=== PATIENT | female | born 2000 | race Caucasian/White ===

== ENCOUNTER 2020-06-10 06:57 | Emergency (ER) | payer BC ==
[~2020-06-10] VITALS: Ht 165 cm; Wt 68.0 kg
[2020-06-10] MEDS ORDERED: NS IV 1000 ML 1,000 ML IV STA (07:21)
[2020-06-10] MEDS ORDERED: KETOROLAC 30 MG/ML VIAL IVP STA (07:21)
[2020-06-10] MEDS ORDERED: ONDANSETRON 4 MG/2 ML (SDV) Z0FRAN IVP STA (07:25)
--- NOTE | 2020-06-10 07:25 | ED GU-Female ---
General Chief Complaint: Abdominal/GI Problems Stated Complaint: RT GROIN/ABD/FLANK PAIN Source: patient History of Present Illness Date Seen by Provider: Jun 10, 2020 Time Seen by Provider: 07:10 Initial Comments 20 yo female presenting with complaints of right sided flank pain radiating to her groin and vaginal area since about 430 this am. She has had similar pain in the past with kidney stones. She has not seen a Urologist about the stones. She took a Tramadol but it did not help. She is out of the medicine prescribed for bladder spasms that usually gets used for prostate issues. She denies having a local primary care provider but follows with a provider out of [place], Dr. Shwetha Truong. She has had an episode of vomiting this am. She denies vaginal discharge or bleeding. She has had no abdominal surgeries. She initially thought that maybe she was constipated and was straining on the toilet but that just made her back hurt and now she has pain going into her right thigh as well as the groin. She feels flushed and hot but does not have a fever. Timing/Duration: this morning (0430), intermittent Severity/Quality: severe, sharp, stabbing Location: right flank Radiation: groin, vaginal, urethral Activities at Onset: sleep Prior Genitourinary Problems: similar symptoms (with kidney stones) Sexual [place] History: less than 2 months ago, single partner Modifying Factors: Worsens With Defecating, Worsens With Movement, Worsens With Palpation, Worsens With Urinating Associated Symptoms: abdominal pain (pain wraps around right flank into her gr oin); No diaphoresis; dysuria; No fever/chills, No loss of bladder control; lower back pain; No lumps, No mass; nausea/vomiting; No nocturia, No polyuria, No swelling, No syncope; urinary frequency Allergies and Home Medications Allergies Coded Allergies: amoxicillin (Verified Allergy, Intermediate, Vomiting, 06/10/20) clavulanic acid (Verified Allergy, Intermediate, Vomiting, 06/10/20) aripiprazole (Verified Allergy, Unknown, 06/10/20) quetiapine (Verified Allergy, Unknown, 06/10/20) Home Medications Norethindrone AC-Eth Estradiol 1 Each Tablet, 1 TAB PO DAILY, (Reported) 1 tab by mouth daily for 21 days, then off for 7 days. Last Action: New Order Ondansetron 4 Mg Tab.rapdis, 4 MG PO Q6H PRN for NAUSEA/VOMITING Prescribed by: YORDAN HIGGINSRT on 06/10/20755 Tamsulosin HCl 0.4 Mg Cap, 0.4 MG PO DAILY Prescribed by: YORDAN COBBYART on 06/10/20755 Tramadol HCl 50 Mg Tablet, 50 MG PO Q6H PRN for PAIN-SEVERE (8-10) Prescribed by: YORDAN TORO on 06/10/20755 Patient Home Medication List Home Medication List Reviewed: Yes Review of Systems Review of Systems Constitutional: No chills; fever (subjectively feels hot and flushed) EENTM: no symptoms reported Respiratory: no symptoms reported Cardiovascular: no symptoms reported Gastrointestinal: see HPI Genitourinary: see HPI : No LMP: May 27, 2020 Musculoskeletal: back pain (low back pain) Skin: no symptoms reported Psychiatric/Neurological: Anxiety Endocrine: No Symptoms Reported Past Tzqrhwh-Ejyzyh-Hmgqxo Hx Past Med/Social Hx: Reviewed Nursing Past Med/Soc Hx Past Medical History Surgeries: Yes Ear Surgery (tympanostomy tubes as child) Respiratory: No Cardiac: No Neurological: No : No Reproductive Disorders: No Genitourinary: Yes Kidney Stones Gastrointestinal: No Musculoskeletal: No Endocrine: No HEENT: No Cancer: No Integumentary: No Physical Exam Vital Signs Vital Signs - First Documented 06/10/20 07:10 Temp 36.6 Pulse 85 Resp 18 B/P (MAP) 130/95 (107) Pulse Ox 99 O2 Delivery Room Air Capillary Refill : Height, Weight, BMI Height: '" Weight: lbs. oz. kg; BMI Method: General Appearance: moderate distress (intermittently crying out with pain to right flank) HEENT: PERRL/EOMI Neck: non-tender, full range of motion, supple, normal inspection Cardiovascular: normal peripheral pulses, regular rate, rhythm Respiratory: chest non-tender, lungs clear, normal breath sounds, no respiratory distress, no accessory muscle use Gastrointestinal: normal bowel sounds, soft, no pulsatile mass, tenderness (right flank wrapping around to her RLQ and groin/suprapubic area) Rectal: deferred Extremities: normal range of motion, normal capillary refill Neurologic/Psychiatric: apartment leasing manager II-XII nml as tested, alert, oriented x 3 Skin: normal color, warm/dry Progress/Results/Core Measures Suspected Sepsis SIRS Temperature: Pulse: Respiratory Rate: Laboratory Tests 06/10/20 07:18: White Blood Count 9.1 Blood Pressure / Mean: Laboratory Tests 06/10/20 07:18: Creatinine 0.85, Platelet Count 290, Total Bilirubin 0.9 Results/Orders Lab Results Laboratory Tests Test 06/10/20 07:10 06/10/20 07:18 Range/Units Urine Color YELLOW Urine Clarity SLT CLOUDY Urine pH 7.0 5-9 Urine Specific [place]edar 1.020 1.016-1.022 Urine Protein NEGATIVE NEGATIVE Urine Glucose (UA) NEGATIVE NEGATIVE Urine Ketones NEGATIVE NEGATIVE Urine Nitrite NEGATIVE NEGATIVE Urine Bilirubin NEGATIVE NEGATIVE Urine Urobilinogen 0.2 < = 1.0 MG/DL Urine Leukocyte Esterase TRACE H NEGATIVE Urine RBC (Auto) 1+ H NEGATIVE Urine RBC 0-2 /HPF Urine WBC 2-5 /HPF Urine Squamous Epithelial Cells 10-25 H /HPF Urine Crystals NONE /LPF Urine Bacteria TRACE /HPF Urine Casts NONE /LPF Urine Mucus NEGATIVE /LPF Urine Culture Indicated NO White Blood Count 9.1 4.3-11.0 10^3/uL Red Blood Count 5.18 4.35-5.85 10^6/uL Hemoglobin 14.2 11.5-16.0 G/DL Hematocrit 42 35-52 % Mean Corpuscular Volume 82 80-99 FL Mean Corpuscular Hemoglobin 27 25-34 PG Mean Corpuscular Hemoglobin Concent 34 32-36 G/DL Red Cell Distribution Width 12.4 10.0-14.5 % Platelet Count 290 130-400 10^3/uL Mean Platelet Volume 9.7 7.4-10.4 FL Immature Granulocyte % (Auto) 0 % Neutrophils (%) (Auto) 60 42-75 % Lymphocytes (%) (Auto) 27 12-44 % Monocytes (%) (Auto) 10 0-12 % Eosinophils (%) (Auto) 2 0-10 % Basophils (%) (Auto) 0 0-10 % Neutrophils # (Auto) 5.5 1.8-7.8 X 10^3 Lymphocytes # (Auto) 2.5 1.0-4.0 X 10^3 Monocytes # (Auto) 1.0 0.0-1.0 X 10^3 Eosinophils # (Auto) 0.2 0.0-0.3 10^3/uL Basophils # (Auto) 0.0 0.0-0.1 10^3/uL Immature Granulocyte # (Auto) 0.0 0.0-0.1 10^3/uL Sodium Level 143 135-145 MMOL/L Potassium Level 3.6 3.6-5.0 MMOL/L Chloride Level 108 H 98-107 MMOL/L Carbon Dioxide Level 24 21-32 MMOL/L Anion Gap 11 5-14 MMOL/L Blood Urea Nitrogen 13 7-18 MG/DL Creatinine 0.85 0.60-1.30 MG/DL Estimat Glomerular Filtration Rate > 60 BUN/Creatinine Ratio 15 Glucose Level 117 H 70-105 MG/DL Calcium Level 9.5 8.5-10.1 MG/DL Corrected Calcium 8.5-10.1 MG/DL Total Bilirubin 0.9 0.1-1.0 MG/DL Aspartate Amino Transf (AST/SGOT) 18 5-34 U/L Alanine Aminotransferase (ALT/SGPT) 17 0-55 U/L Alkaline Phosphatase 74 40-136 U/L Total Protein 7.1 6.4-8.2 GM/DL Albumin 4.6 H 3.2-4.5 GM/DL Lipase 18 8-78 U/L My Orders Orders - YORDAN TORO MD Ua Culture If Indicated (06/10/20 07:11) Urine Bedside (06/10/20 07:11) Comprehensive Metabolic Panel (06/10/20 07:11) Lipase (06/10/20 07:11) Ed Iv/Invasive Line Start (06/10/20 07:11) Cbc With Automated Diff (06/10/20 07:11) Ct Abdomen/Pelvis Wo (06/10/20 07:11) Ketorolac Injection (Toradol Injection) (06/10/20 07:21) Ns Iv 1000 Ml (Sodium Chloride 0.9%) (06/10/20 07:21) Ondansetron Injection (Zofran Injectio (06/10/20 07:25) Fentanyl Inj (Sublimaze Injection) (06/10/20 07:26) Strain Urine (06/10/20 07:57) Vital Signs/I&O 4/15/21 4/15/21 4/15/21 07:10 07:30 08:18 Temp 36.6 36.6 36.6 Pulse 85 68 Resp 18 18 B/P (MAP) 130/95 (107) 130/95 Pulse Ox 99 99 O2 Delivery Room Air Room Air Capillary Refill : Progress Note #1: Progress Note Obtain UA and Urine test on arrival. Order labs to check blood count and chemistry profile including lipase. Order CT scan of the abdomen and pelvis without contrast to evaluate for possible kidney stone or other pathology to cause right flank pain. Ordered Toradol 30 mg IV for pain, fentanyl 50 mcg for pain, Zofran 4 mg IV for nausea, 1 L of normal saline IV for hydration. Differential diagnosis would include kidney stones, pyelonephritis, UTI, PID, appendicitis, colitis, diverticulitis, pancreatitis, ovarian cyst. Progress Note #2: Time: 07:39 Progress Note CBC shows no acute significant abnormality. Her urinalysis has a specific gravity of 1.020 and had trace leukocyte esterase with 1+ blood but only 2-5 red blood cells. There were 10-25 epithelial cells. No nitrites, bacteria or white blood cells to indicate an infection. Progress Note #3: Time: 07:57 Progress Note Chemistry panel without acute significant abnormality. She had normal renal function. Her CT scan shows a 2 mm distal right ureter kidney stone with mild hydroureter hydronephrosis. There is no other significant abnormality on the CT scan. On recheck of the patient she states that her pain is down to a 2 out of 10. She initially was a 9 out of 10. She states that it has been since her last kidney stone. 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 Discussed results of testing and reviewed follow-up and return precautions. Answered all questions prior to discharge. Given handouts about kidney stones, renal colic, diet and prevention for kidney stones. Stressed importance of drinking more water and less carbonated and caffeine drinks. Diagnostic Imaging Diagonstic Imaging: CT Plain Films/CT/US/NM/MRI: abdomen, pelvis Comments NAME: [facility] REC#: [id number] PT STATUS: REG ER : 2000 PHYSICIAN: YORDAN TORO MD ADMIT DATE: 06/10/20/ER FS Draft Date of Exam:06/10/20 CT ABDOMEN/PELVIS WO EXAMINATION: CT Abdomen Pelvis without contrast. TECHNIQUE: Multiple contiguous axial images were obtained through the abdomen and pelvis without the use of intravenous contrast. All CT scans use one or more of the following dose optimizing techniques: automated exposure control, MA and/or KvP adjustment based on a patient size and exam type, or iterative reconstruction. HISTORY: Right flank pain, history of kidney stones COMPARISON: None available. FINDINGS: Lung bases: The lung bases are clear. Solid organs: The liver is normal. The gallbladder is normal. There is no biliary ductal dilation. Pancreas is normal. Spleen is normal. Adrenal glands are normal. There is a 0.2 cm calculus within the distal right ureter which results in mild right hydronephrosis and hydroureter. The left kidney is unremarkable. Bowel: The stomach and small bowel are normal without obstruction. Colon is unremarkable. No findings of acute appendicitis. Peritoneum: There is no intraperitoneal free fluid or free air. No suspicious lymphadenopathy. Vasculature: Normal without aneurysm. Musculoskeletal: No suspicious osseous lesion or compression fracture. Pelvis: The uterus and adnexa are normal. The urinary bladder is normal. IMPRESSION: 1. A 0.2 cm calculus within the distal right ureter resulting in mild right hydronephrosis and hydroureter. Dictated on workstation # [id number] Dict: 06/10/20 0739 Trans: 06/10/20 0743 BANNER [id number] Interpreted by: JOHNNY CHAVEZ DO Electronically signed by: Departure Impression Primary Impression: Right distal ureteral calculus Additional Impressions: Acute right flank pain Renal colic on right side Disposition: 01 HOME, SELF-CARE Condition: Improved Departure-Patient Inst. Decision time for Depature: 08:15 Referrals: SHWETHA TRUONG MD (PCP) Primary Care Physician KARRIE ESCOBAR MD Patient Instructions: Kidney Stone, Adult ED, How to Strain Your Urine, Kidney Stone Diet Add. Discharge Instructions: Follow up with Urology for continued concerns about kidney stones. Continue to work with your primary provider about your symptoms. Strain all your urine until you see the stone pass so you could collect the stone and see if your doctor or Urology would want to order an analysis of the stone to see what it was made from so they could direct your diet if needed to help prevent further stones. Seek medical care if you have pain not controlled with the medicine, fever over 101 F, or uncontrolled vomiting as you may need additional IV medicine or further care and treatment. All discharge instructions reviewed with patient and/or family. Voiced understanding. Scripts Ondansetron (Ondansetron Odt) 4 Mg Tab.rapdis 4 MG PO Q6H PRN for NAUSEA/VOMITING for 3 Days, #12 TAB 0 Refills Prov: YORDAN TORO MD 06/10/20 Tramadol HCl (Tramadol HCl) 50 Mg Tablet 50 MG PO Q6H PRN for PAIN-SEVERE (8-10) for 3 Days, #12 TAB 0 Refills Prov: YORDAN TORO MD 06/10/20 Tamsulosin HCl (Flomax) 0.4 Mg Cap 0.4 MG PO DAILY for renal colic for 10 Days, #10 CAP 0 Refills Prov: YORDAN TORO MD 06/10/20 YORDAN TORO MD Jun 10, 2020 07:25
[2020-06-10] MEDS ORDERED: fentaNYL INJ 100 MCG/2 ML AMP IVP STA (07:26)
[2020-06-10 07:32] LABS: HEMOGLOBIN 14.2 G/DL (11.5-16.0); MEAN CORPUSCULAR HEMOGLOBIN 27 PG (25-34); WHITE BLOOD COUNT 9.1 10^3/uL (4.3-11.0)
[2020-06-10 07:33] LABS: BASOPHILS % (AUTO) 0 % (0-10); EOSINOPHILS % (AUTO) 2 % (0-10); HEMATOCRIT 42 % (35-52); LYMPHOCYTES # (AUTO) 2.5 X 10^3 (1.0-4.0); LYMPHOCYTES % (AUTO) 27 % (12-44); MEAN CORPUSCULAR HGB CONC 34 G/DL (32-36); MEAN CORPUSCULAR VOLUME 82 FL (80-99); MEAN PLATELET VOLUME 9.7 FL (7.4-10.4); MONOCYTES % (AUTO) 10 % (0-12); NEUTROPHILS # (AUTO) 5.5 X 10^3 (1.8-7.8); NEUTROPHILS % (AUTO) 60 % (42-75); PLATELET COUNT 290 10^3/uL (130-400)
[2020-06-10 07:34] LABS: CLARITY,URINE SLT CLOUDY; COLOR,URINE YELLOW; GLUCOSE, URINE (UA) NEGATIVE (NEGATIVE); PROTEIN,URINE NEGATIVE (NEGATIVE)
[2020-06-10 07:34] LABS: EOSINOPHILS # (AUTO) 0.2 10^3/uL (0.0-0.3)
[2020-06-10 07:35] LABS: BACTERIA,URINE TRACE /HPF; BILIRUBIN,URINE NEGATIVE (NEGATIVE); KETONES,URINE NEGATIVE (NEGATIVE); LEUKOCYTE ESTERASE ,URINE TRACE (NEGATIVE); NITRITE,URINE NEGATIVE (NEGATIVE); RBC,URINE 0-2 /HPF
[2020-06-10] MEDS ORDERED: NORE1TAB23 PO (07:38)
--- NOTE | 2020-06-10 07:44 | Diagnostic Imaging Report ---
EXAMINATION: CT Abdomen Pelvis without contrast. TECHNIQUE: Multiple contiguous axial images were obtained through the abdomen and pelvis without the use of intravenous contrast. All CT scans use one or more of the following dose optimizing techniques: automated exposure control, MA and/or KvP adjustment based on a patient size and exam type, or iterative reconstruction. HISTORY: Right flank pain, history of kidney stones COMPARISON: None available. FINDINGS: Lung bases: The lung bases are clear. Solid organs: The liver is normal. The gallbladder is normal. There is no biliary ductal dilation. Pancreas is normal. Spleen is normal. Adrenal glands are normal. There is a 0.2 cm calculus within the distal right ureter which results in mild right hydronephrosis and hydroureter. The left kidney is unremarkable. Bowel: The stomach and small bowel are normal without obstruction. Colon is unremarkable. No findings of acute appendicitis. Peritoneum: There is no intraperitoneal free fluid or free air. No suspicious lymphadenopathy. Vasculature: Normal without aneurysm. Musculoskeletal: No suspicious osseous lesion or compression fracture. Pelvis: The uterus and adnexa are normal. The urinary bladder is normal. IMPRESSION: 1. A 0.2 cm calculus within the distal right ureter resulting in mild right hydronephrosis and hydroureter. Dictated by: Dictated on workstation # [id number]
[2020-06-10 07:51] LABS: ALANINE AMINOTRANSFERASE 17 U/L (0-55); ALBUMIN 4.6 GM/DL (3.2-4.5); ALKALINE PHOSPHATASE 74 U/L (40-136); BILIRUBIN,TOTAL 0.9 MG/DL (0.1-1.0); BUN/CREATININE RATIO 15; CALCIUM 9.5 MG/DL (8.5-10.1); CARBON DIOXIDE 24 MMOL/L (21-32); CHLORIDE 108 MMOL/L (98-107); CREATININE SERUM 0.85 MG/DL (0.60-1.30); GFR ESTIMATED > 60; GLUCOSE 117 MG/DL (70-105); POTASSIUM 3.6 MMOL/L (3.6-5.0); SODIUM 143 MMOL/L (135-145); TOTAL PROTEIN 7.1 GM/DL (6.4-8.2)
[2020-06-10 07:52] LABS: LIPASE 18 U/L (8-78)
[2020-06-10] MEDS ORDERED: TRM50T PO (07:56)
[2020-06-10] MEDS ORDERED: ONDA4TAB11 PO (07:56)
[2020-06-10] MEDS ORDERED: TMSL.4C PO (07:56)
[2020-06-10 08:18] VITALS: BP 130/95
== END 2020-06-10 08:18 | disposition home or self-care (01) ==
LOC: EDUNIT# 07:06 → ER FS 07:08
DX: N13.2 Hydronephrosis with renal and ureteral calculous obstruction (principal); I10 Essential (primary) hypertension; Z88.1 Allergy status to other antibiotic agents; Z88.8 Allergy status to other drugs, medicaments and biological substances
CPT/HCPCS: 36415; 74176; 80053; 81000; 83690; 84703; 85025

== ENCOUNTER 2020-10-23 09:01 | Emergency (ER) | payer BC ==
[~2020-10-23] VITALS: Ht 165 cm; Wt 79.5 kg
[~2020-10-23 09:01] MED LIST: NORE1TAB23 PO; ONDA4TAB11 PO; TMSL.4C PO; TRM50T PO
--- OUTSIDE RECORDS SUMMARY | 2020-10-23 09:05 | XMS REPORT | Clinical Summary ---
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 Name Role Phone Shwetha Truong MD PP Allergies Comments Active Allergy Reactions Severity Noted Date Ticks Aripiprazole Other (See 03/05/2019 Comments) Vomit Amoxicillin-Pot GI 03/05/2019 Clavulanate Intolerance Ticks Quetiapine Other (See 03/05/2019 Comments) Medications Not on file Active Problems Not on file Immunizations Name Administration Dates Next Due Menactra Single Dose Vial 03/05/2019 Social History Date Tobacco Use Types Packs/Day Years Used Never Assessed Sex Assigned at Date Recorded Not on file Last Filed Vital Signs Reading Time Taken Comments Vital Sign - - Blood Pressure - - Pulse 37.2 C (99 F) 03/05/2019 4:58 PM FRONT DESK MONITOR Temperature - - Respiratory Rate - - Oxygen Saturation - - Inhaled Oxygen Concentration 68 kg (150 lb) 03/05/2019 4:58 PM FRONT DESK MONITOR Weight - - Height - - Body Mass Index Plan of Treatment Health Maintenance Due Date Last Done Comments Cervical Cancer: 05/10/2020 Screening Results Not on filefrom Last 3 Months Insurance Type Payer Benefit Subscriber ID Effective Phone Address Plan / Dates Group BCBS JESSICA BCBS [id number] 2019-P [facility] - NON HMO PLANS [id number] Care Teams Start Date End Date Tank Truck Engine Mechanic Relationship Specialty 03/05/19 Shwetha Truong MD PCP - General Family [address] [place] [address]
--- OUTSIDE RECORDS SUMMARY | 2020-10-23 09:05 | XMS REPORT | Clinical Summary ---
Author Author [facility] Organization [facility] Address Unknown Phone Unavailable Care Team Providers Care Shank Sorter Name Role Phone Ani Hurley MD PCP Source Comments Some departments are not documenting in the electronic medical record. If you d o not see the information that you expected, contact Release of Information in [facility] [employer] Information Management department at [phone] for further assistan ce in locating additional records.[facility] Allergies Comments Active Allergy Reactions Severity Noted Date Aripiprazole DYSTONIA High 01/23/2016 Amoxicillin-Pot VOMITING Low 01/23/2016 Clavulanate Quetiapine DYSTONIA High 01/23/2016 Medications End Date Status Medication Sig Dispensed Refills Start Date Active lisdexamfetamine(+) Take 20 mg by 0 (VYVANSE) 20 mg capsule mouth every morning Active traZODone (DESYREL) 100 Take 100 mg 0 mg tablet by mouth at bedtime daily. Active meloxicam (MOBIC) 15 mg Take 15 mg by 0 tablet mouth daily. Active lamoTRIgine (LAMICTAL) Take 150 mg 0 150 mg tablet by mouth daily. Active montelukast (SINGULAIR) Take 10 mg by 0 10 mg tablet mouth at bedtime daily. Active escitalopram oxalate Take 20 mg by 0 (LEXAPRO) 20 mg tablet mouth daily. Active Problems Not on file Social History Date Tobacco Use Types Packs/Day Years Used Never Assessed Sex Assigned at Date Recorded Not on file Last Filed Vital Signs Reading Time Taken Comments Vital Sign 108/79 01/24/2016 3:24 PM SURFBOARD MAKER Blood Pressure 78 01/24/2016 2:15 PM SURFBOARD MAKER Pulse 36.7 C (98.1 F) 01/24/2016 2:15 PM SURFBOARD MAKER Temperature - - Respiratory Rate 100% 01/24/2016 3:24 PM SURFBOARD MAKER Oxygen Saturation - - Inhaled Oxygen Concentration 52.2 kg (115 lb) 01/23/2016 8:53 AM SURFBOARD MAKER Weight 165.1 cm (5' 5") 01/23/2016 8:53 AM SURFBOARD MAKER Height 19.14 01/23/2016 8:53 AM SURFBOARD MAKER Body Mass Index Plan of Treatment Health Maintenance Due Date Last Done Comments CHLAMYDIA SCREENING 18-24 2000 YEARS HPV VACCINES (1 - 2-dose 05/10/2010 series) HIV SCREENING 05/10/2014 DTAP/TDAP VACCINES ( - 05/10/2017 Tdap) HEPATITIS C SCREENING 05/10/2017 PHYSICAL (COMPREHENSIVE) 05/10/2017 EXAM CERVICAL CANCER SCREENING 05/10/2020 INFLUENZA VACCINE 11/26/2020 MENINGOCOCCAL VACCINE Aged Out No longer eligib le based on patient's age to (Wanda ZAVALA) complete this topic Results Not on filefrom Last 3 Months Insurance Type Payer Benefit Subscriber ID Effective Phone Address Plan / Dates Group AETNA AETNA [id number] 2014[place] [id number] Advance Directives Patient Airline Hostess Explanation Type Date Recorded no Advance 01/22/2016 9:03 PM Directive/DPOA
--- OUTSIDE RECORDS SUMMARY | 2020-10-23 09:06 | XMS REPORT | Clinical Summary ---
Author Author Admin, Aleksandra MELGOZA Organization [facility] Address Unknown Phone Unavailable Allergies, Adverse Reactions, Alerts Allergy Name Reaction Description Start Date Severity Status Pr ovider ABILIFY side effect of seizures Mild Active M jesus Lauren SEROQUEL side effect of seizures Mild Active M jesus Lauren AUGMENTIN vomiting Moderate Active Fela Lauren Conditions or Problems Problem Name Problem Code Onset Date Status Entry Date Provider Comment Standard Description Annotate Absent heart tones, unspecified trimester 659.73 07/20 Resolved Sofi Carbajal MD Abnormality in heart rate or rhythm, antepartum condition or complication BMI 29-29.9 Inactive Sofi Carbajal MD Body Mass Index 29.0-29.9, adult Overweight (BMI 25-29.9) Inactive Sofi hu MD Overweight Supervision of normal first V22.0 Active Sofi Carbajal MD Supervision of normal first Abnormal thyroid stimulating hormone 790.6 Inactive Sofi Carbajal MD Other abnormal blood chemistry Hyperthyroidism in , first trimester 648.13 Active Sofi Carbajal MD Thyroid dysfunction complicating , childbirth, or the puerperium, antepartum condition or complication Rh factor, negative 656.10 Active Sofi Carbajal MD Rhesus isoimmunization affecting management of mother, unspecified as to episode of care or not applicable Absent heart tones, unspecified trimester ICD-659.73 Inactive Sofi Carbajal MD BMI 29-29.9 Inactive Sofi Carbajal MD 2020 Overweight (BMI 25-29.9) Inactive Ricardo Carbajal MD Medication List Medication Instructions Start Date Stop Date Generic Name NDC Status Provider Patient Instruction ZOFRAN 4 MG ORAL TABLET 1 tablet every 6 hours as needed for lamine sea ONDANSETRON HCL 78095148451 Active Sofi Carbajal MD Ac tive EQL FORMULA 28-0.8 MG ORAL TABLET 1 tablet daily 2 VIT-FE FUMARATE-FA 84450438303 Active Fela Aguilar Active Immunizations Vaccine Administration Date Value Standard Cornell cription hepatitis B vaccine series yes hepat itis B vaccine, unspecified formulation Vital Signs Date Name Value Unit Range Description blood pressure, diastolic 85 mm[Hg] BP henry blood pressure, systolic 128 mm[Hg] BP sys pulse rate 82 /min Heart rate temperature E&M 98.0 [degF] Body temp erature weight E&M 168 [lb_av] Weight Measure d blood pressure, diastolic, repeated by physician 87 BP henry blood pressure, diastolic 87 mm[Hg] BP henry blood pressure, systolic, repeated by physician 126 BP sys blood pressure, systolic 126 mm[Hg] BP sys height E&M 65 [in_us] Bdy height pulse rate 83 /min Heart rate temperature E&M 99.3 [degF] Body temp erature weight E&M 177 [lb_av] Weight Measure d Diagnostic Results Date Name Value Unit Range Description Lab Report: BDAffirm, UADIP W/MICRO, AUT O - Chemistry protein, total urine random Negative mg/dL Negative RBC, urine, dipstick Negative Negative Lab Report: BDAffirm, UADIP W/MICRO, AUT O - Urinalysis urobilinogen, urine, semiquantitative (dipstick) 0.2 E .U./dL Normal leukocyte esterase, urine, by dipstick 2+ Negative nitrite, urine, semiquantitative Negative Neg ative glucose, urine, semiquantitative Negative Neg ative ketones, urine, by test strip Negative Negati ve bilirubin, urine Negative Negative urine color Yellow Colorless;Lightyellow;St raw;Yellow appearance, urine Clear Clear specific gravity, urine 1.015 1.000-1.030 pH, urine, semiquantitative 7.5 5.0-8.5 Lab Report: Free Thyroxine (L) - Coating Inspector ry thyroxine, serum, free 1.18 ng/dL 0.59-1.17 Lab Report: HIV Ag/Ab A/C, Thyroid Stimu lating Hormone (L) - Chemistry TSH 0.05 m[iU]/mL 0.36-3.74 Office Visit: follow up ob - Urinalysis protein, urine, semiquantitative (dipstick) Tr glucose, urine, semiquantitative N nitrite, urine, semiquantitative N Office Visit: Initial OB Visit - Genetic s/fertility test, date 06/19/2020 Office Visit: Initial OB Visit - Microbi ology Herpes Simplex Virus Genital no Office Visit: Initial OB Visit - Urinaly sis protein, urine, semiquantitative (dipstick) UC glucose, urine, semiquantitative UC nitrite, urine, semiquantitative UC Procedures Code Procedure Name Date Entry Date Standard Desc ription CPT-05821 Visit 11:40:46 CDT CPT-94439 Sono OB comp <14 weeks - XRAY USE ONLY 4 11:25:17 CDT CPT-90802 Visit 15:47:04 CDT
--- OUTSIDE RECORDS SUMMARY | 2020-10-23 09:06 | XMS REPORT | Clinical Summary ---
Author Author Admin, Aleksandra MELGOZA Organization [facility] Address Unknown Phone Unavailable Allergies, Adverse Reactions, [...] as needed for lamine sea ONDANSETRON HCL [id number] Active Sofi Carbajal MD Ac tive EQL FORMULA 28-0.8 MG ORAL TABLET 1 tablet daily 2 VIT-FE FUMARATE-FA [id number] Active Fela Lauren Active Immunizations Vaccine Administration Date Value Standard Cornell cription hepatitis B vaccine series yes Diagnostic Results Date Name Value Unit Range [...] 5.0-8.5 Lab Report: Free Thyroxine (L) - Salesperson Stereo Equipment ry thyroxine, serum, free 1.18 ng/dL 0.59-1.17 Lab Report: HIV Ag/Ab A/C, Thyroid Stimu lating Hormone (L) - Chemistry TSH 0.05 m[iU]/mL 0.36-3.74 Lab Report: Thyroid Stimulating Hormone (L), Free Thyroxine (L) - Chemistry TSH 0.03 m[iU]/mL 0.36-3.74 thyroxine, serum, free 1.16 ng/dL 0.59-1.17 Office Visit: follow up ob - Urinalysis [...] Name Date Entry Date Standard Desc ription CPT-56506 Venipuncture Draw Fee 12:38:25 CDT CPT-65501 Visit 11:40:46 CDT CPT-51334 Sono OB comp <14 weeks - XRAY USE ONLY 4 11:25:17 CDT CPT-50210 Visit 15:47:04 CDT
--- OUTSIDE RECORDS SUMMARY | 2020-10-23 09:06 | XMS REPORT | Clinical Summary ---
Author Author Admin, Aleksandra MELGOZA Organization [facility] Address Unknown Phone Unavailable Allergies, Adverse Reactions, [...] as needed for lamine sea ONDANSETRON HCL 94104117599 Active Sofi Carbajal MD Ac tive EQL FORMULA 28-0.8 MG ORAL TABLET 1 tablet daily 2 VIT-FE FUMARATE-FA 34887852394 Active Fela Aguilar Active Immunizations Vaccine Administration [...] 5.0-8.5 Lab Report: Free Thyroxine (L) - Route Vending Machine Servicer ry thyroxine, serum, free 1.18 ng/dL 0.59-1.17 [...] Name Date Entry Date Standard Desc ription CPT-41020 Venipuncture Draw Fee 12:38:25 CDT CPT-43879 Visit 11:40:46 CDT CPT-46720 Sono OB comp <14 weeks - XRAY USE ONLY 4 11:25:17 CDT CPT-33942 Visit 15:47:04 CDT
--- OUTSIDE RECORDS SUMMARY | 2020-10-23 09:06 | XMS REPORT | Clinical Summary ---
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 Inactive Sofi Carbajal MD BMI 29-29.9 Inactive Sofi Carbajal MD 2020 Overweight (BMI 25-29.9) Inactive Ricardo Carbajal MD Medication List Medication Instructions Start Date Stop Date Generic Name NDC Status Provider Patient Instruction ZOFRAN 4 MG ORAL TABLET 1 tablet every 6 hours as needed for lamine sea ONDANSETRON HCL 90328782810 Active Sofi Carbajal MD Ac tive EQL FORMULA 28-0.8 MG ORAL TABLET 1 tablet daily 2 VIT-FE FUMARATE-FA 47725890584 Active Fela Abbasina Active Immunizations Vaccine Administration Date Value Standard [...] 5.0-8.5 Lab Report: Free Thyroxine (L) - Electronic Drafter ry thyroxine, serum, free 1.18 ng/dL 0.59-1.17 Lab Report: HIV Ag/Ab A/C, Thyroid Stimu lating Hormone (L) - Chemistry TSH 0.05 m[iU]/mL 0.36-3.74 Lab Report: Thyroid Stimulating Hormone (L), Free Thyroxine (L) - Chemistry TSH 0.03 m[iU]/mL 0.36-3.74 thyroxine, serum, free 1.16 ng/dL 0.59-1.17 Office Visit: Follow up OB - Urinalysis protein, urine, semiquantitative (dipstick) N glucose, urine, semiquantitative N nitrite, urine, semiquantitative N protein, urine, semiquantitative (dipstick) Tr glucose, urine, [...] Name Date Entry Date Standard Desc ription CPT-39257 Sono OB comp > 14 weeks - XRAY USE ONLY 12:44:12 CDT CPT-02964 Visit 09:51:23 CDT CPT-16171 Venipuncture Draw Fee 12:38:25 CDT CPT-62962 Visit 11:40:46 CDT CPT-11934 Sono OB comp <14 weeks - XRAY USE ONLY 4 11:25:17 CDT CPT-04317 Visit 15:47:04 CDT
--- OUTSIDE RECORDS SUMMARY | 2020-10-23 09:06 | XMS REPORT | Clinical Summary ---
Author Author Admin, Aleksandra MELGOZA Organization [employer] [facility] Address Unknown Phone Unavailable Allergies, Adverse Reactions, [...] as needed for lamine sea ONDANSETRON HCL [id number] Active Sofi Carbajal MD Ac tive EQL FORMULA 28-0.8 MG ORAL TABLET 1 tablet daily 2 VIT-FE FUMARATE-FA 42279247221 Active Fela Aguilar Active Immunizations Vaccine Administration Date Value Standard Corenll cription hepatitis B vaccine series yes Diagnostic [...] 5.0-8.5 Lab Report: Free Thyroxine (L) - Vacuum Form Operator ry thyroxine, serum, free 1.18 ng/dL 0.59-1.17 [...] Name Date Entry Date Standard Desc ription CPT-56467 Venipuncture Draw Fee 12:38:25 CDT CPT-84516 Visit 11:40:46 CDT CPT-52000 Sono OB comp <14 weeks - XRAY USE ONLY 4 11:25:17 CDT CPT-32797 Visit 15:47:04 CDT
--- OUTSIDE RECORDS SUMMARY | 2020-10-23 09:06 | XMS REPORT | Clinical Summary ---
Author Author Admin, Aleksandra MELGOZA Organization [facility] Address Unknown Phone Unavailable Allergies, Adverse [...] as needed for lamine sea ONDANSETRON HCL 17108402311 Active Sofi Carbajal MD Ac tive EQL FORMULA 28-0.8 MG ORAL TABLET 1 tablet daily 2 VIT-FE FUMARATE-FA 11150409906 Active Fela Lauren Active Immunizations Vaccine Administration [...] 5.0-8.5 Lab Report: Free Thyroxine (L) - Dot Etcher Apprentice ry thyroxine, serum, free 1.18 ng/dL 0.59-1.17 [...] Name Date Entry Date Standard Desc ription CPT-82047 Venipuncture Draw Fee 12:38:25 CDT CPT-71977 Visit 11:40:46 CDT CPT-57671 Sono OB comp <14 weeks - XRAY USE ONLY 4 11:25:17 CDT CPT-89495 Visit 15:47:04 CDT
--- OUTSIDE RECORDS SUMMARY | 2020-10-23 09:06 | XMS REPORT | Clinical Summary ---
Author Author Admin, Aleksandra MELGOZA Organization [employer] [facility] Address Unknown Phone Unavailable Allergies, Adverse [...] as needed for lamine sea ONDANSETRON HCL 34620866525 Active Sofi Carbajal MD Ac tive EQL FORMULA 28-0.8 MG ORAL TABLET 1 tablet daily 2 VIT-FE FUMARATE-FA 85401645977 Active Fela Aguilar Active Immunizations Vaccine Administration [...] 5.0-8.5 Lab Report: Free Thyroxine (L) - Rack Worker ry thyroxine, serum, free 1.18 ng/dL 0.59-1.17 [...] Name Date Entry Date Standard Desc ription CPT-19212 Venipuncture Draw Fee 12:38:25 CDT CPT-41647 Visit 11:40:46 CDT CPT-72484 Sono OB comp <14 weeks - XRAY USE ONLY 4 11:25:17 CDT CPT-19440 Visit 15:47:04 CDT
--- OUTSIDE RECORDS SUMMARY | 2020-10-23 09:06 | XMS REPORT | Clinical Summary ---
Author Author Admin, Aleksandra MELGOZA Organization [facility] Address Unknown Phone Unavailable Allergies, Adverse Reactions, [...] as needed for lamine sea ONDANSETRON HCL 94570504867 Active Sofi Carbajal MD Ac tive EQL FORMULA 28-0.8 MG ORAL TABLET 1 tablet daily 2 VIT-FE FUMARATE-FA 70755964699 Active Fela Aguilar Active Immunizations Vaccine Administration [...] 5.0-8.5 Lab Report: Free Thyroxine (L) - Body Art Technician ry thyroxine, serum, free 1.18 ng/dL 0.59-1.17 [...] Name Date Entry Date Standard Desc ription CPT-64153 Venipuncture Draw Fee 12:38:25 CDT CPT-93554 Visit 11:40:46 CDT CPT-29732 Sono OB comp <14 weeks - XRAY USE ONLY 4 11:25:17 CDT CPT-35703 Visit 15:47:04 CDT
--- OUTSIDE RECORDS SUMMARY | 2020-10-23 09:06 | XMS REPORT | Clinical Summary ---
Author Author Admin, Aleksandra MELGOZA Organization [employer] [facility] Address Unknown Phone Unavailable Allergies, Adverse [...] as needed for lamine sea ONDANSETRON HCL 63378384530 Active Sofi Carbajal MD Ac tive EQL FORMULA 28-0.8 MG ORAL TABLET 1 tablet daily 2 VIT-FE FUMARATE-FA 80906436705 Active Fela Aguilar Active Immunizations Vaccine Administration Date Value Standard Cornell cription hepatitis B vaccine series yes hepat itis B vaccine, unspecified formulation Vital Signs Date Name Value Unit Range Description blood pressure, diastolic 77 mm[Hg] BP henry blood pressure, systolic 121 mm[Hg] BP sys temperature E&M 98.6 [degF] Body temp erature weight E&M 173.8 [lb_av] Weight Measure d blood pressure, diastolic 85 mm[Hg] BP henry [...] 5.0-8.5 Lab Report: Free Thyroxine (L) - Refrigeration Installer ry thyroxine, serum, free 1.18 ng/dL 0.59-1.17 [...] Name Date Entry Date Standard Desc ription CPT-53478 Sono OB comp > 14 weeks - XRAY USE ONLY 12:44:12 CDT CPT-32343 Visit 09:51:23 CDT CPT-29420 Venipuncture Draw Fee 12:38:25 CDT CPT-04287 Visit 11:40:46 CDT CPT-43779 Sono OB comp <14 weeks - XRAY USE ONLY 4 11:25:17 CDT CPT-44986 Visit 15:47:04 CDT
--- OUTSIDE RECORDS SUMMARY | 2020-10-23 09:06 | XMS REPORT | Clinical Summary ---
Author Author Admin, Aleksandra MELGOZA Organization [facility] Address Unknown Phone Unavailable Allergies, Adverse Reactions, [...] as needed for lamine sea ONDANSETRON HCL 68730305959 Active Sofi Carbajal MD Ac tive EQL FORMULA 28-0.8 MG ORAL TABLET 1 tablet daily 2 VIT-FE FUMARATE-FA 77602220222 Active Fela Lauren Active Immunizations Vaccine Administration [...] 5.0-8.5 Lab Report: Free Thyroxine (L) - Support Services Manager ry thyroxine, serum, free 1.18 ng/dL 0.59-1.17 [...] Name Date Entry Date Standard Desc ription CPT-78398 Venipuncture Draw Fee 12:38:25 CDT CPT-14132 Visit 11:40:46 CDT CPT-75302 Sono OB comp <14 weeks - XRAY USE ONLY 4 11:25:17 CDT CPT-77881 Visit 15:47:04 CDT
--- OUTSIDE RECORDS SUMMARY | 2020-10-23 09:06 | XMS REPORT | Clinical Summary ---
Author Author Admin, Aleksandra MELGOZA Organization [facility] Address Unknown Phone Unavailable Allergies, Adverse Reactions, [...] Absent heart tones, unspecified trimester ICD-659.73 Inactive Sfoi Carbajal MD BMI 29-29.9 Inactive Sofi Carbajal MD 2020 Overweight (BMI 25-29.9) Inactive Ricardo Carbajal MD Medication List Medication Instructions Start Date Stop Date Generic Name NDC Status Provider Patient Instruction ZOFRAN 4 MG ORAL TABLET 1 tablet every 6 hours as needed for lamine sea ONDANSETRON HCL 45699481533 Active Sofi Carbajal MD Ac tive EQL FORMULA 28-0.8 MG ORAL TABLET 1 tablet daily 2 VIT-FE FUMARATE-FA 61593769583 Active Fela Lauren Active Immunizations Vaccine Administration [...] 5.0-8.5 Lab Report: Free Thyroxine (L) - Visual Education Director ry thyroxine, serum, free 1.18 ng/dL 0.59-1.17 [...] Name Date Entry Date Standard Desc ription CPT-58423 Venipuncture Draw Fee 12:38:25 CDT CPT-46523 Visit 11:40:46 CDT CPT-98325 Sono OB comp <14 weeks - XRAY USE ONLY 4 11:25:17 CDT CPT-94344 Visit 15:47:04 CDT
--- OUTSIDE RECORDS SUMMARY | 2020-10-23 09:06 | XMS REPORT | Clinical Summary ---
Author Author Admin, Aleksandra MELGOZA Organization [facility] Address Unknown Phone Unavailable Allergies, Adverse [...] as needed for lamine sea ONDANSETRON HCL 88335979324 Active Sofi Carbajal MD Ac tive EQL FORMULA 28-0.8 MG ORAL TABLET 1 tablet daily 2 VIT-FE FUMARATE-FA 39076214044 Active Fela Aguilar Active Immunizations Vaccine Administration [...] 5.0-8.5 Lab Report: Free Thyroxine (L) - Hand Drawer In ry thyroxine, serum, free 1.18 ng/dL 0.59-1.17 [...] Name Date Entry Date Standard Desc ription CPT-14131 Sono OB comp > 14 weeks - XRAY USE ONLY 12:44:12 CDT CPT-47758 Visit 09:51:23 CDT CPT-77254 Venipuncture Draw Fee 12:38:25 CDT CPT-36698 Visit 11:40:46 CDT CPT-14304 Sono OB comp <14 weeks - XRAY USE ONLY 4 11:25:17 CDT CPT-59605 Visit 15:47:04 CDT
--- OUTSIDE RECORDS SUMMARY | 2020-10-23 09:06 | XMS REPORT | Clinical Summary ---
Author Author Admin, Aleksandra MELGOZA Organization [employer] [facility] Address Unknown Phone Unavailable Allergies, [...] as needed for lamine sea ONDANSETRON HCL 26789814775 Active Sofi Carbajal MD Ac tive EQL FORMULA 28-0.8 MG ORAL TABLET 1 tablet daily 2 VIT-FE FUMARATE-FA 11224142264 Active Fela Aguilar Active Immunizations Vaccine Administration [...] 5.0-8.5 Lab Report: Free Thyroxine (L) - Blanket Cutting Machine Operator ry thyroxine, serum, free 1.18 ng/dL [...] Name Date Entry Date Standard Desc ription CPT-65276 Sono OB comp > 14 weeks - XRAY USE ONLY 12:44:12 CDT CPT-81855 Visit 09:51:23 CDT CPT-40488 Venipuncture Draw Fee 12:38:25 CDT CPT-36101 Visit 11:40:46 CDT CPT-53212 Sono OB comp <14 weeks - XRAY USE ONLY 4 11:25:17 CDT CPT-13414 Visit 15:47:04 CDT
--- OUTSIDE RECORDS SUMMARY | 2020-10-23 09:06 | XMS REPORT | Clinical Summary ---
Author Author Admin, Aleksandra MELGOZA Organization [facility] Address Unknown Phone Unavailable Allergies, Adverse Reactions, [...] as needed for lamine sea ONDANSETRON HCL 45988607137 Active Sofi Carbajal MD Ac tive EQL FORMULA 28-0.8 MG ORAL TABLET 1 tablet daily 2 VIT-FE FUMARATE-FA 57771316556 Active Fela Lauren Active Immunizations Vaccine Administration [...] 5.0-8.5 Lab Report: Free Thyroxine (L) - Arboreal Scientist ry thyroxine, serum, free 1.18 ng/dL 0.59-1.17 [...] Name Date Entry Date Standard Desc ription [facility]-53931 Visit 09:51:23 CDT CPT-90417 Venipuncture Draw Fee 12:38:25 CDT CPT-06808 Visit 11:40:46 CDT CPT-64883 Sono OB comp <14 weeks - XRAY USE ONLY 4 11:25:17 CDT CPT-78546 Visit 15:47:04 CDT
--- OUTSIDE RECORDS SUMMARY | 2020-10-23 09:06 | XMS REPORT | Clinical Summary ---
Author Author Admin, Aleksandra MELGOZA Organization [employer] [facility] Address Unknown Phone Unavailable Allergies, Adverse Reactions, [...] Sofi Carbajal MD BMI 29-29.9 Inactive Sofi Carbajla MD 2020 Overweight (BMI 25-29.9) Inactive Ricardo Carbajal MD Medication List Medication Instructions Start Date Stop Date Generic Name NDC Status Provider Patient Instruction ZOFRAN 4 MG ORAL TABLET 1 tablet every 6 hours as needed for lamien sea ONDANSETRON HCL 05539163298 Active Sofi Carbajal MD Ac tive EQL FORMULA 28-0.8 MG ORAL TABLET 1 tablet daily 2 VIT-FE FUMARATE-FA 26914732850 Active Fela Aguilar Active Immunizations Vaccine Administration [...] 5.0-8.5 Lab Report: Free Thyroxine (L) - Electrical Designer ry thyroxine, serum, free 1.18 ng/dL 0.59-1.17 [...] Name Date Entry Date Standard Desc ription CPT-89173 Venipuncture Draw Fee 12:38:25 CDT CPT-64849 Visit 11:40:46 CDT CPT-15852 Sono OB comp <14 weeks - XRAY USE ONLY 4 11:25:17 CDT CPT-05404 Visit 15:47:04 CDT
--- OUTSIDE RECORDS SUMMARY | 2020-10-23 09:06 | XMS REPORT | Clinical Summary ---
Author Author Admin, Aleksandra MELGOZA Organization [facility] Address Unknown Phone Unavailable Allergies, Adverse [...] as needed for lamine sea ONDANSETRON HCL 63188959853 Active Sofi Carbajal MD Ac tive EQL FORMULA 28-0.8 MG ORAL TABLET 1 tablet daily 2 VIT-FE FUMARATE-FA 69431233408 Active Fela Lauren Active Immunizations Vaccine Administration [...] 5.0-8.5 Lab Report: Free Thyroxine (L) - Clerk Funeral Detail ry thyroxine, serum, free 1.18 ng/dL 0.59-1.17 [...] Name Date Entry Date Standard Desc ription CPT-88177 Venipuncture Draw Fee 12:38:25 CDT CPT-49550 Visit 11:40:46 CDT CPT-67270 Sono OB comp <14 weeks - XRAY USE ONLY 4 11:25:17 CDT CPT-32793 Visit 15:47:04 CDT
--- OUTSIDE RECORDS SUMMARY | 2020-10-23 09:06 | XMS REPORT | Clinical Summary ---
Author Author Admin, Aleksandra MELGOZA Organization [employer] [facility] Address Unknown Phone Unavailable Allergies, [...] as needed for lamine sea ONDANSETRON HCL 77564247794 Active Sofi Carbajal MD Ac tive EQL FORMULA 28-0.8 MG ORAL TABLET 1 tablet daily 2 VIT-FE FUMARATE-FA 56868496178 Active Fela Aguilar Active Immunizations Vaccine Administration [...] 5.0-8.5 Lab Report: Free Thyroxine (L) - Lot Porter ry thyroxine, serum, free 1.18 ng/dL 0.59-1.17 [...] Name Date Entry Date Standard Desc ription CPT-20579 Sono OB comp > 14 weeks - XRAY USE ONLY 12:44:12 CDT CPT-90334 Visit 09:51:23 CDT CPT-48538 Venipuncture Draw Fee 12:38:25 CDT CPT-73397 Visit 11:40:46 CDT CPT-04981 Sono OB comp <14 weeks - XRAY USE ONLY 4 11:25:17 CDT CPT-69468 Visit 15:47:04 CDT
--- OUTSIDE RECORDS SUMMARY | 2020-10-23 09:06 | XMS REPORT | Clinical Summary ---
Author Author Admin, Aleksandra MELGOZA Organization [facility] Address Unknown Phone Unavailable Allergies, Adverse Reactions, [...] as needed for lamine sea ONDANSETRON HCL 08028909956 Active Sofi Carbajal MD Ac tive EQL FORMULA 28-0.8 MG ORAL TABLET 1 tablet daily 2 VIT-FE FUMARATE-FA 90071413754 Active Fela Aguilar Active Immunizations Vaccine Administration [...] 5.0-8.5 Lab Report: Free Thyroxine (L) - Coal Passer ry thyroxine, serum, free 1.18 ng/dL 0.59-1.17 [...] Name Date Entry Date Standard Desc ription CPT-97683 Sono OB comp > 14 weeks - XRAY USE ONLY 12:44:12 CDT CPT-22687 Visit 09:51:23 CDT CPT-55260 Venipuncture Draw Fee 12:38:25 CDT CPT-92791 Visit 11:40:46 CDT CPT-60127 Sono OB comp <14 weeks - XRAY USE ONLY 4 11:25:17 CDT CPT-57424 Visit 15:47:04 CDT
--- OUTSIDE RECORDS SUMMARY | 2020-10-23 09:06 | XMS REPORT | Clinical Summary ---
Author Author Admin, Aleksandra MELGOZA Organization [facility] Address Unknown Phone Unavailable Allergies, Adverse Reactions, [...] as needed for lamine sea ONDANSETRON HCL 74722396557 Active Sofi Carbajal MD Ac tive EQL FORMULA 28-0.8 MG ORAL TABLET 1 tablet daily 2 VIT-FE FUMARATE-FA 56930881155 Active Fela Lauren Active Immunizations Vaccine Administration [...] 5.0-8.5 Lab Report: Free Thyroxine (L) - Developmental Electronics Assembler ry thyroxine, serum, free 1.18 ng/dL 0.59-1.17 [...] Name Date Entry Date Standard Desc ription CPT-27399 Sono OB comp > 14 weeks - XRAY USE ONLY 12:44:12 CDT CPT-94308 Visit 09:51:23 CDT CPT-67734 Venipuncture Draw Fee 12:38:25 CDT CPT-12707 Visit 11:40:46 CDT CPT-38495 Sono OB comp <14 weeks - XRAY USE ONLY 4 11:25:17 CDT CPT-68349 Visit 15:47:04 CDT
--- OUTSIDE RECORDS SUMMARY | 2020-10-23 09:06 | XMS REPORT | Clinical Summary ---
Author Author Admin, Aleksandra MELGOZA Organization [employer] [facility] Address Unknown Phone Unavailable Allergies, [...] as needed for lamine sea ONDANSETRON HCL 65859461706 Active Sofi Carbajal MD Ac tive EQL FORMULA 28-0.8 MG ORAL TABLET 1 tablet daily 2 VIT-FE FUMARATE-FA 72066034918 Active Fela Aguilar Active Immunizations Vaccine Administration [...] 5.0-8.5 Lab Report: Free Thyroxine (L) - Cardiac Specialist ry thyroxine, serum, free 1.18 ng/dL 0.59-1.17 [...] Name Date Entry Date Standard Desc ription CPT-40268 Venipuncture Draw Fee 12:38:25 CDT CPT-54708 Visit 11:40:46 CDT CPT-78083 Sono OB comp <14 weeks - XRAY USE ONLY 4 11:25:17 CDT CPT-20359 Visit 15:47:04 CDT
--- OUTSIDE RECORDS SUMMARY | 2020-10-23 09:06 | XMS REPORT | Clinical Summary ---
Author Author Admin, Aleksandra MELGOZA Organization [employer] [facility] Address Unknown Phone Unavailable Allergies, Adverse Reactions, [...] as needed for lamine sea ONDANSETRON HCL 67574007359 Active Sofi Carbajal MD Ac tive EQL FORMULA 28-0.8 MG ORAL TABLET 1 tablet daily 2 VIT-FE FUMARATE-FA 70570764020 Active Fela Abbasina Active Immunizations Vaccine Administration [...] 5.0-8.5 Lab Report: Free Thyroxine (L) - Carding Utility Tender ry thyroxine, serum, free 1.18 ng/dL 0.59-1.17 [...] Name Date Entry Date Standard Desc ription CPT-03981 Visit 09:51:23 CDT CPT-58674 Venipuncture Draw Fee 12:38:25 CDT CPT-02638 Visit 11:40:46 CDT CPT-21424 Sono OB comp <14 weeks - XRAY USE ONLY 4 11:25:17 CDT CPT-12233 Visit 15:47:04 CDT
--- OUTSIDE RECORDS SUMMARY | 2020-10-23 09:06 | XMS REPORT | Clinical Summary ---
Author Author Admin, Aleksandra MELGOZA Organization [employer] [facility] Address Unknown Phone Unavailable Allergies, [...] as needed for lamine sea ONDANSETRON HCL 16028217887 Active Sofi Carbajal MD Ac tive EQL FORMULA 28-0.8 MG ORAL TABLET 1 tablet daily 2 VIT-FE FUMARATE-FA 72363387456 Active Fela Aguilar Active Immunizations Vaccine Administration [...] 5.0-8.5 Lab Report: Free Thyroxine (L) - Project Controller ry thyroxine, serum, free 1.18 ng/dL 0.59-1.17 [...] Name Date Entry Date Standard Desc ription CPT-47067 Venipuncture Draw Fee 12:38:25 CDT CPT-33305 Visit 11:40:46 CDT CPT-68297 Sono OB comp <14 weeks - XRAY USE ONLY 4 11:25:17 CDT CPT-49291 Visit 15:47:04 CDT
--- OUTSIDE RECORDS SUMMARY | 2020-10-23 09:06 | XMS REPORT | Clinical Summary ---
Author Author Admin, Aleksandra MELGOZA Organization [employer] [facility] Address Unknown Phone Unavailable Allergies, [...] as needed for lamine sea ONDANSETRON HCL 60037585700 Active Sofi Carbajal MD Ac tive EQL FORMULA 28-0.8 MG ORAL TABLET 1 tablet daily 2 VIT-FE FUMARATE-FA 62323215016 Active Fela Aguilar Active Immunizations Vaccine Administration [...] 5.0-8.5 Lab Report: Free Thyroxine (L) - Revenue Field Auditor ry thyroxine, serum, free 1.18 ng/dL 0.59-1.17 [...] Name Date Entry Date Standard Desc ription CPT-81543 Venipuncture Draw Fee 12:38:25 CDT CPT-96971 Visit 11:40:46 CDT CPT-81842 Sono OB comp <14 weeks - XRAY USE ONLY 4 11:25:17 CDT CPT-08822 Visit 15:47:04 CDT
--- OUTSIDE RECORDS SUMMARY | 2020-10-23 09:06 | XMS REPORT | Clinical Summary ---
Author Author Admin, Aleksandra MELGOZA Organization [facility] Address Unknown Phone Unavailable Allergies, Adverse [...] as needed for lamine sea ONDANSETRON HCL 49993039880 Active Sofi Carbajal MD Ac tive EQL FORMULA 28-0.8 MG ORAL TABLET 1 tablet daily 2 VIT-FE FUMARATE-FA 73703220391 Active Fela Lauren Active Immunizations Vaccine Administration [...] 5.0-8.5 Lab Report: Free Thyroxine (L) - Skilled Nursing Case Manager ry thyroxine, serum, free 1.18 ng/dL [...] Name Date Entry Date Standard Desc ription CPT-66148 Venipuncture Draw Fee 12:38:25 CDT CPT-09291 Visit 11:40:46 CDT CPT-73115 Sono OB comp <14 weeks - XRAY USE ONLY 4 11:25:17 CDT CPT-19103 Visit 15:47:04 CDT
--- NOTE | 2020-10-23 09:26 | ED General ---
General Chief Complaint: General Problems/Pain Stated Complaint: DEAN,WEAKNESS,N/V,DIZZINESS, BLURRED VISION 21 WKS Source of Information: Patient Exam Limitations: No Limitations History of Present Illness Date Seen by Provider: Oct 23, 2020 Time Seen by Provider: 09:13 Initial Comments Patient is a 20-year-old female who presents to the emergency room today with a chief complaint of frontal headache, generalized weakness, palpitations nausea and vomiting. Patient states she had onset of headache when she woke up this morning at about 7 AM. She took 2 extra strength Tylenol. Patient initially rated her headache at a "9" now it is a "6-7". She did vomit twice this morning. She states when she woke up she had blurry vision out of her left eye that resolved after about 10 minutes. Patient states she normally doesn't have headaches. She is approximately 21 weeks with an estimated due date of March 02, 2021. She recently saw her OB provider a couple of days ago and had a negative Covid test. She has been complaining of palpitations lightheaded and dizziness for several days. No chronic medical conditions. Denies burning with urination abnormal vaginal discharge or leakage. States she feels the baby move occasionally. This is her first . Tells me her mother had a history of preeclampsia with . Patient does not smoke drink or use recreational drugs. She does not use caffeine excessively. Patient is not Covid vaccinated. All other review of systems reviewed and negative except as stated. Timing/Duration: 1-3 Hours Severity: Moderate Associated Systoms: Headaches, Malaise, Nausea/Vomiting Allergies and Home Medications Allergies Coded Allergies: amoxicillin (Verified Allergy, Intermediate, Vomiting, 06/10/20) clavulanic acid (Verified Allergy, Intermediate, Vomiting, 06/10/20) aripiprazole (Verified Allergy, Unknown, 06/10/20) quetiapine (Verified Allergy, Unknown, 06/10/20) Home Medications Cephalexin 500 Mg Tablet, 500 MG PO TID Prescribed by: VIRGINIA PITTMAN on 10/23/20 1057 Norethindrone AC-Eth Estradiol 1 Each Tablet, 1 TAB PO DAILY, (Reported) 1 tab by mouth daily for 21 days, then off for 7 days. Ondansetron 4 Mg Tab.rapdis, 4 MG PO Q6H PRN for NAUSEA/VOMITING Prescribed by: YORDAN COBBYART on 06/10/20755 Tamsulosin HCl 0.4 Mg Cap, 0.4 MG PO DAILY Prescribed by: YORDAN Peng ENYART on 06/10/20755 Tramadol HCl 50 Mg Tablet, 50 MG PO Q6H PRN for PAIN-SEVERE (8-10) Prescribed by: YORDAN Peng ENYART on 06/10/20755 Patient Home Medication List Home Medication List Reviewed: Yes Review of Systems Review of Systems Constitutional: see HPI, malaise EENTM: blurred vision (left eye) Respiratory: no symptoms reported Cardiovascular: palpitations Gastrointestinal: nausea, vomiting Genitourinary: no symptoms reported : Yes Expected Date of Delivery: Mar 02, 2021 Musculoskeletal: no symptoms reported Skin: no symptoms reported Psychiatric/Neurological: Headache All Other Systems Reviewed Negative Unless Noted: Yes Past Sfuxakt-Oezqaq-Lvcylb Hx Seasonal Allergies Seasonal Allergies: No Past Medical History Surgeries: Yes Ear Surgery Respiratory: No Cardiac: No Neurological: No Reproductive Disorders: No Genitourinary: Yes Kidney Stones Gastrointestinal: No Musculoskeletal: No Endocrine: No HEENT: No Cancer: No Psychosocial: Yes (thought to be bipolar at one time) Integumentary: No Blood Disorders: No Physical Exam Vital Signs Vital Signs - First Documented 10/23/20 09:06 Temp 36.7 Pulse 99 Resp 18 B/P (MAP) 175/102 (126) Pulse Ox 98 Capillary Refill : Height, Weight, BMI Height: '" Weight: lbs. oz. kg; 24.00 BMI Method: General Appearance: No Apparent Distress, WD/WN Eyes: Bilateral Eye Normal Inspection, Bilateral Eye PERRL, Bilateral Eye EOMI HEENT: PERRL/EOMI, TMs Normal, Normal ENT Inspection, Pharynx Normal Neck: Normal Inspection Respiratory: Lungs Clear, Normal Breath Sounds, No Accessory Muscle Use, No Respiratory Distress Cardiovascular: Regular Rate, Rhythm, Normal Peripheral Pulses Gastrointestinal: Non Tender, Soft, Other (fundus at the umbilicus) Extremity: Normal Capillary Refill, Normal Inspection, Normal Range of Motion, Non Tender, No Calf Tenderness Neurologic/Psychiatric: Alert, Oriented x3, No Motor/Sensory Deficits, Normal Mood/Affect, emblem cutter II-XII Norm as Tested Reflexes: 1+ Knee (R), 1+ Knee (L) Skin: Normal Color, Warm/Dry Progress/Results/Core Measures Suspected Sepsis SIRS Temperature: Pulse: Respiratory Rate: Laboratory Tests 10/23/20 10:17: White Blood Count 13.3H Blood Pressure / Mean: Laboratory Tests 10/23/20 10:17: Creatinine 0.69, Platelet Count 159, Total Bilirubin 0.8 Results/Orders Lab Results Laboratory Tests Test 10/23/20 09:30 10/23/20 10:17 Range/Units Urine Color TERRI H Urine Clarity CLOUDY Urine pH 7.5 5-9 Urine Specific [place]rall 1.015 L 1.016-1.022 Urine Protein TRACE H NEGATIVE Urine Glucose (UA) NEGATIVE NEGATIVE Urine Ketones NEGATIVE NEGATIVE Urine Nitrite NEGATIVE NEGATIVE Urine Bilirubin NEGATIVE NEGATIVE Urine Urobilinogen 0.2 < = 1.0 MG/DL Urine Leukocyte Esterase 1+ H NEGATIVE Urine RBC (Auto) NEGATIVE NEGATIVE Urine RBC NONE /HPF Urine WBC 2-5 /HPF Urine Squamous Epithelial Cells 10-25 H /HPF Urine Crystals PRESENT H /LPF Urine Amorphous Sediment MOD BISI PHOSPHATE H /LPF Urine Bacteria LARGE H /HPF Urine Casts NONE /LPF Urine Mucus NEGATIVE /LPF Urine Culture Indicated NO White Blood Count 13.3 H 4.3-11.0 10^3/uL Red Blood Count 4.89 3.80-5.11 10^6/uL Hemoglobin 13.9 11.5-16.0 g/dL Hematocrit 42 35-52 % Mean Corpuscular Volume 86 80-99 fL Mean Corpuscular Hemoglobin 28 25-34 pg Mean Corpuscular Hemoglobin Concent 33 32-36 g/dL Red Cell Distribution Width 13.7 10.0-14.5 % Platelet Count 159 130-400 10^3/uL Mean Platelet Volume 11.6 9.0-12.2 fL Immature Granulocyte % (Auto) 1 % Neutrophils (%) (Auto) 80 H 42-75 % Lymphocytes (%) (Auto) 11 L 12-44 % Monocytes (%) (Auto) 7 0-12 % Eosinophils (%) (Auto) 1 0-10 % Basophils (%) (Auto) 0 0-10 % Neutrophils # (Auto) 10.6 H 1.8-7.8 10^3/uL Lymphocytes # (Auto) 1.5 1.0-4.0 10^3/uL Monocytes # (Auto) 0.9 0.0-1.0 10^3/uL Eosinophils # (Auto) 0.1 0.0-0.3 10^3/uL Basophils # (Auto) 0.0 0.0-0.1 10^3/uL Immature Granulocyte # (Auto) 0.1 0.0-0.1 10^3/uL Sodium Level 136 135-145 MMOL/L Potassium Level 3.7 3.6-5.0 MMOL/L Chloride Level 103 98-107 MMOL/L Carbon Dioxide Level 22 21-32 MMOL/L Anion Gap 11 5-14 MMOL/L Blood Urea Nitrogen 8 7-18 MG/DL Creatinine 0.69 0.60-1.30 MG/DL Estimat Glomerular Filtration Rate 107 BUN/Creatinine Ratio 12 Glucose Level 83 70-105 MG/DL Uric Acid 3.9 2.6-7.2 MG/DL Calcium Level 9.5 8.5-10.1 MG/DL Corrected Calcium 9.7 8.5-10.1 MG/DL Total Bilirubin 0.8 0.1-1.0 MG/DL Aspartate Amino Transf (AST/SGOT) 16 5-34 U/L Alanine Aminotransferase (ALT/SGPT) 22 0-55 U/L Alkaline Phosphatase 77 40-136 U/L Total Protein 7.0 6.4-8.2 GM/DL Albumin 3.8 3.2-4.5 GM/DL My Orders Orders - VIRGINIA PITTMAN MD Ed Iv/Invasive Line Start (10/23/20 09:21) Cbc With Automated Diff (10/23/20 09:21) Comprehensive Metabolic Panel (10/23/20 09:21) Ua Culture If Indicated (10/23/20 09:21) Heart Tones (10/23/20 09:21) Ekg Tracing (10/23/20 09:21) Metoclopramide Injection (Reglan Injecti (10/23/20 09:30) Diphenhydramine Injection (Benadryl Inje (10/23/20 09:30) Uric Acid (10/23/20 09:21) Urine Culture (10/23/20 10:45) Medications Given in ED Current Medications Medications Dose Ordered Sig/Carlotta Route Start Time Stop Time Status Last Admin Dose Admin Diphenhydramine HCl 25 mg ONCE ONCE IV 10/23/20 09:30 10/23/20 09:31 DC 10/23/20 09:44 25 MG Metoclopramide HCl 5 mg ONCE ONCE IVP 10/23/20 09:30 10/23/20 09:31 DC 10/23/20 09:41 5 MG Vital Signs/I&O 10/23/20 09:06 Temp 36.7 Pulse 99 Resp 18 B/P (MAP) 175/102 (126) Pulse Ox 98 Capillary Refill : Progress Note : Time: 10:47 Progress Note Patient reexamined after fluids and meds. She feels much better. Headache is almost completely resolved. Labs have been reviewed, chemistry is within normal limits, uric acid is normal. CBC is still pending, will call and asked the lab about this. Urine shows some trace protein, large bacteria, leukocyte Estrace but several squamous epithelial cells. We will go ahead and culture her urine and put her on some Keflex, pending urine culture. Patient is advised to drink lots of fluids take Tylenol every 6 hours as needed for headache. Return to the emergency room if she develops any fever or other worsening symptoms. She verbalizes understanding. All questions are sought and answered. Blood pressure looks exceedingly better on discharge and her heart rate is down into the 60s and 70s. Shes eating chips from the vending machine. no nausea. BP down to the 115 systolic range. heart tones in the 140's ECG Initial ECG Impression Date: Oct 23, 2020 Initial ECG Impression Time: 09:50 Initial ECG Rate: 125 Initial ECG Rhythm: S.Tach Initial ECG Intervals: Normal Initial ECG Impression: Nonspecific Changes Departure Impression Primary Impression: Headache above the eye region Additional Impression: Second trimester Disposition: 01 HOME, SELF-CARE Condition: Improved Departure-Patient Inst. Decision time for Depature: 10:50 Referrals: MAO PARRA MD (PCP/Family) Primary Care Physician Patient Instructions: Headache, Adult Add. Discharge Instructions: Drink lots of fluids to stay well-hydrated. You can take vegy-niu-ehtnyan extra strength Tylenol, 2 tablets every 6 hours as needed for headache. Antibiotics, Keflex over the course of the next 5 days for urinary tract infection. A urine culture is pending. Follow-up with your OB provider next week as scheduled. Return to the emergency department if you have any new, emergent or concerning complaints. Monitor your blood pressure. Scripts Cephalexin (Cephalexin) 500 Mg Tablet 500 MG PO TID for 5 Days, #15 TAB 0 Refills Prov: VIRGINIA PITTMAN MD 10/23/20 VIGRINIA PITTMAN MD Oct 23, 2020 09:26
[2020-10-23] MEDS ORDERED: diphenhydrAMINE 50 MG/ML INJ (BENADRYL) IV ONE (09:30)
[2020-10-23] MEDS ORDERED: METOCLOPRAMIDE INJ 10 MG/2 ML (REGLAN) IVP ONE (09:30)
[2020-10-23 09:34] LABS: BILIRUBIN,URINE NEGATIVE (NEGATIVE); CLARITY,URINE CLOUDY; COLOR,URINE AMBER; GLUCOSE, URINE (UA) NEGATIVE (NEGATIVE); KETONES,URINE NEGATIVE (NEGATIVE); LEUKOCYTE ESTERASE ,URINE 1+ (NEGATIVE); NITRITE,URINE NEGATIVE (NEGATIVE); PH,URINE 7.5 (5-9); PROTEIN,URINE TRACE (NEGATIVE)
[2020-10-23 09:43] LABS: BACTERIA,URINE LARGE /HPF
[2020-10-23 09:44] LABS: AMORPHOUS SEDIMENT,UR MOD AMOR PHOSPHATE /LPF
[2020-10-23 10:23] LABS: BASOPHILS % (AUTO) 0 % (0-10); EOSINOPHILS # (AUTO) 0.1 10^3/uL (0.0-0.3); EOSINOPHILS % (AUTO) 1 % (0-10); HEMATOCRIT 42 % (35-52); HEMOGLOBIN 13.9 g/dL (11.5-16.0); LYMPHOCYTES # (AUTO) 1.5 10^3/uL (1.0-4.0); LYMPHOCYTES % (AUTO) 11 % (12-44); MEAN CORPUSCULAR HEMOGLOBIN 28 pg (25-34); MEAN CORPUSCULAR HGB CONC 33 g/dL (32-36); MEAN CORPUSCULAR VOLUME 86 fL (80-99); MEAN PLATELET VOLUME 11.6 fL (9.0-12.2); MONOCYTES # (AUTO) 0.9 10^3/uL (0.0-1.0); MONOCYTES % (AUTO) 7 % (0-12); NEUTROPHILS # (AUTO) 10.6 10^3/uL (1.8-7.8); NEUTROPHILS % (AUTO) 80 % (42-75); PLATELET COUNT 159 10^3/uL (130-400); WHITE BLOOD COUNT 13.3 10^3/uL (4.3-11.0)
[2020-10-23 10:32] LABS: ALBUMIN 3.8 GM/DL (3.2-4.5); POTASSIUM 3.7 MMOL/L (3.6-5.0)
[2020-10-23 10:34] LABS: CALCIUM 9.5 MG/DL (8.5-10.1)
[2020-10-23 10:37] LABS: BILIRUBIN,TOTAL 0.8 MG/DL (0.1-1.0)
[2020-10-23 10:38] LABS: CREATININE SERUM 0.69 MG/DL (0.60-1.30)
[2020-10-23 10:41] LABS: URIC ACID 3.9 MG/DL (2.6-7.2)
[2020-10-23] MEDS ORDERED: CEPH500T PO (10:57)
[2020-10-23 11:08] VITALS: BP 119/93
== END 2020-10-23 11:05 | disposition home or self-care (01) ==
LOC: EDUNIT# 09:01 → ER 09:03
DX: O26.892 Other specified pregnancy related conditions, second trimester (principal); R51.9 Headache, unspecified; Z3A.21 21 weeks gestation of pregnancy; Z20.822 Contact with and (suspected) exposure to COVID-19
CPT/HCPCS: 36415; 80053; 81000; 84550; 85025; 87077; 87088; 93005